=== PATIENT | female | born 1990 | race African-American/Black ===

== ENCOUNTER 2021-05-23 21:14 | Emergency (ER) | payer MEDICAID ==
[~2021-05-23] VITALS: Ht 162.6 cm; Wt 118.0 kg
[2021-05-24] MEDS ORDERED: HYDROCODONE/ACETAMINOPHEN 5/325MG TABLET PO ONE (00:45)
[2021-05-24 00:55] VITALS: BP 160/96
[2021-05-24] MEDS ORDERED: IBUP-2029 MT (02:42)
== END 2021-05-24 03:09 | disposition home or self-care (01) ==
LOC: ER 21:14
DX: S09.8XXA Other specified injuries of head, initial encounter (principal); X58.XXXA Exposure to other specified factors, initial encounter; Y93.89 Activity, other specified; Y92.89 Other specified places as the place of occurrence of the external cause; Y99.8 Other external cause status
CPT/HCPCS: 70486; 81025; 99284